=== PATIENT | female | born 1975 | race Caucasian/White ===

== ENCOUNTER 2017-01-18 14:54 | Emergency (ER) | payer OTHER ==
[~2017-01-18 14:54] MED LIST: PRED20 PO; VENTAER INH; ZITHTAB6 PO
[2017-01-18 14:59] VITALS: BP 155/67; PULSE 121; RESP 22; TEMP 98.2; O2SAT 100
--- NOTE | 2017-01-18 15:24 | PD ---
Physical Exam Time Seen by Provider: 15:22 Narrative 41 y/o female here for evaluation of palpitations, anxiety while driving today. Vital signs reviewed. Seen at triage desk. Awaiting bed placement. Data Data Last Documented VS Vital Signs Date Time Temp Pulse Resp B/P Pulse Ox O2 Delivery O2 Flow Rate FiO2 01/18/17 14:59 98.2 121 22 155/67 100 MDM Medical Record Reviewed: Yes Supervised Visit with MARTY: Kb Whitney Jan 18, 2017 15:24
--- NOTE | 2017-01-18 16:29 | PD ---
HPI Chief Complaint: Anxiety Time Seen by Provider: 16:09 Travel History International Travel<30 days: No Contact w/Intl Traveler<30days: No Traveled to known affect area: No History of Present Illness HPI The patient is a 41-year-old female who presents emergency department for palpitations and possible panic attack. The patient states she's been under a lot of stress recently, her fianc several months ago, and the fianc of a good friend recently 10 days ago unexpectedly. The patient is had some palpitations intermittently, was driving earlier today when she felt her heart rate was elevated, possibly near 200. The patient states she developed tunnel head, lightheaded, and was near syncopal. However, she denies any loss consciousness. She also stated she had mild nausea and thought she was going to vomit but denied any chest pain or shortness of breath. The symptoms resolved and then she started driving again, after picking up her daughter, symptoms returned. The patient does have a history of panic attacks/ anxiety years ago when her father , however, underwent therapy and thought she knew how to deal with the stress. She denies any history of pulmonary most , DVT, SVT, atrial flutter, or atrial fibrillation. She denies any recent surgeries, hospitalizations, prolonged travels, or lower extremity edema. She is not currently on control. The patient's primary physician is Dr. María Bell. PFS Past Medical History Diminished Hearing: No ?: Not Tubal Ligation: Yes Past Surgical History Other Surgery: Yes (skin graft right leg, UTERINE ABLATION, BREAST AUGMENTATION ) Social History Alcohol Use: Yes Tobacco Use: Yes (1/2 PPD) Substance Use: No Allergies-Medications (Allergen,Severity, Reaction): Coded Allergies: Morphine (Verified Adverse Reaction, Severe, Anxiety, 05/03/16) Reported Meds & Prescriptions Reported Meds & Active Scripts Active Ativan (Lorazepam) 1 Mg Tab 1 Mg PO Q6H PRN Review of Systems Except as stated in HPI: all other systems reviewed are Neg General / Constitutional: No: Fever Eyes: Positive: Other (tunnel vision) HENT: Positive: Lightheadedness Cardiovascular: Positive: Palpitations, Tachycardia, No: Chest Pain or Discomfort, Diaphoresis Respiratory: No: Shortness of Breath Gastrointestinal: Positive: Nausea, No: Vomiting, Abdominal Pain Musculoskeletal: No: Weakness, Edema Neurologic: Positive: Dizziness Physical Exam Narrative GENERAL: Awake, alert, pleasant 41 year-old female who appears her stated age and is in no acute respiratory distress. SKIN: Focused skin assessment warm/dry. HEAD: Atraumatic. Normocephalic. EYES: Pupils equal and round. No scleral icterus. No injection or drainage. ENT: No nasal bleeding or discharge. Mucous membranes pink and moist. NECK: Trachea midline. No JVD. CARDIOVASCULAR: Regular rate and rhythm. No murmur appreciated. Heart rate in the 90s. RESPIRATORY: No accessory muscle use. Clear to auscultation. Breath sounds equal bilaterally. GASTROINTESTINAL: Abdomen soft, non-tender, nondistended. MUSCULOSKELETAL: No obvious deformities. No clubbing. No cyanosis. No edema. Calves are soft bilaterally. NEUROLOGICAL: Awake and alert. No obvious cranial nerve deficits. Motor grossly within normal limits. Normal speech. PSYCHIATRIC: Appropriate mood and affect; insight and judgment normal. Data Data Last Documented VS Vital Signs Date Time Temp Pulse Resp B/P Pulse Ox O2 Delivery O2 Flow Rate FiO2 01/18/17 18:00 76 20 157/79 97 Room Air 01/18/17 14:59 98.2 Orders Electrocardiogram (01/18/17 ) Complete Blood Count With Diff (01/18/17 16:18) Comprehensive Metabolic Panel (01/18/17 16:18) Magnesium (Mg) (01/18/17 16:18) Ecg Monitoring (01/18/17 16:18) Bilateral Bp Monitoring (01/18/17 16:18) Iv Access Insert/Monitor (01/18/17 16:18) Oximetry (01/18/17 16:18) Oxygen Administration (01/18/17 16:18) Sodium Chloride 0.9% Flush (Ns Flush) (01/18/17 16:30) Sodium Chlorid 0.9% 500 Ml Inj (Ns 500 M (01/18/17 16:30) Lorazepam (Ativan) (01/18/17 16:30) Thyroid Stimulating Hormone (01/18/17 16:18) Free Thyroxine (T4) (01/18/17 16:18) Holter Monitor Recording (01/18/17 ) Acetaminophen (Tylenol) (01/18/17 17:15) Labs Laboratory Tests Test 01/18/17 16:32 White Blood Count 8.5 TH/MM3 Red Blood Count 4.54 MIL/MM3 Hemoglobin 15.0 GM/DL Hematocrit 43.3 % Mean Corpuscular Volume 95.3 FL Mean Corpuscular Hemoglobin 33.0 PG Mean Corpuscular Hemoglobin 34.6 % Concent Red Cell Distribution Width 12.7 % Platelet Count 207 TH/MM3 Mean Platelet Volume 8.3 FL Neutrophils (%) (Auto) 70.4 % Lymphocytes (%) (Auto) 20.7 % Monocytes (%) (Auto) 7.6 % Eosinophils (%) (Auto) 0.9 % Basophils (%) (Auto) 0.4 % Neutrophils # (Auto) 6.0 TH/MM3 Lymphocytes # (Auto) 1.8 TH/MM3 Monocytes # (Auto) 0.6 TH/MM3 Eosinophils # (Auto) 0.1 TH/MM3 Basophils # (Auto) 0.0 TH/MM3 CBC Comment DIFF FINAL Differential Comment Sodium Level 138 MEQ/L Potassium Level 4.4 MEQ/L Chloride Level 106 MEQ/L Carbon Dioxide Level 21.7 MEQ/L Anion Gap 10 MEQ/L Blood Urea Nitrogen 16 MG/DL Creatinine 0.73 MG/DL Estimat Glomerular Filtration 89 ML/MIN Rate Random Glucose 81 MG/DL Calcium Level 9.5 MG/DL Magnesium Level 2.0 MG/DL Total Bilirubin 1.1 MG/DL Aspartate Amino Transf 27 U/L (AST/SGOT) Alanine Aminotransferase 21 U/L (ALT/SGPT) Alkaline Phosphatase 70 U/L Total Protein 7.5 GM/DL Albumin 4.3 GM/DL Free Thyroxine 1.03 NG/DL Thyroid Stimulating Hormone 1.270 uIU/ML [address] [place] [address] Medical Decision Making Medical Screen Exam Complete: Yes Emergency Medical Condition: Yes Medical Record Reviewed: Yes Interpretation(s) EKG reveals normal sinus rhythm with a rate of 75. RSR prime in V1. ME interval 135 ms, no evidence of WPW or Brugada syndrome. Laboratory Tests Test 01/18/17 16:32 White Blood Count 8.5 TH/MM3 Red Blood Count 4.54 MIL/MM3 Hemoglobin 15.0 GM/DL Hematocrit 43.3 % Mean Corpuscular Volume 95.3 FL Mean Corpuscular Hemoglobin 33.0 PG Mean Corpuscular Hemoglobin 34.6 % Concent Red Cell Distribution Width 12.7 % Platelet Count 207 TH/MM3 Mean Platelet Volume 8.3 FL Neutrophils (%) (Auto) 70.4 % Lymphocytes (%) (Auto) 20.7 % Monocytes (%) (Auto) 7.6 % Eosinophils (%) (Auto) 0.9 % Basophils (%) (Auto) 0.4 % Neutrophils # (Auto) 6.0 TH/MM3 Lymphocytes # (Auto) 1.8 TH/MM3 Monocytes # (Auto) 0.6 TH/MM3 Eosinophils # (Auto) 0.1 TH/MM3 Basophils # (Auto) 0.0 TH/MM3 CBC Comment DIFF FINAL Differential Comment Sodium Level 138 MEQ/L Potassium Level 4.4 MEQ/L Chloride Level 106 MEQ/L Carbon Dioxide Level 21.7 MEQ/L Anion Gap 10 MEQ/L Blood Urea Nitrogen 16 MG/DL Creatinine 0.73 MG/DL Estimat Glomerular Filtration 89 ML/MIN Rate Random Glucose 81 MG/DL Calcium Level 9.5 MG/DL Magnesium Level 2.0 MG/DL Total Bilirubin 1.1 MG/DL Aspartate Amino Transf 27 U/L (AST/SGOT) Alanine Aminotransferase 21 U/L (ALT/SGPT) Alkaline Phosphatase 70 U/L Total Protein 7.5 GM/DL Albumin 4.3 GM/DL Free Thyroxine 1.03 NG/DL Thyroid Stimulating Hormone 1.270 uIU/ML 3rd Gen Differential Diagnosis Differential diagnosis includes arrhythmia, SVT, atrial flutter, atrial fibrillation, pulmonary embolism, hyperthyroidism, anxiety, panic attack, electrolyte abnormality. Narrative Course IV was established, labs are drawn and sent, and the patient was placed on cardiac telemetry monitoring and continuous pulse oximetry monitoring. EKG was ordered and interpreted. I do discussion with patient regarding anxiety/panic attack versus arrhythmia. She does have a history of anxiety and panic attacks , is unsure if the recent stress caused her symptoms. After discussion was agreed she would receive Ativan 1 mg orally, however, we would older a Holter monitor as this possibly could be arrhythmia related. Laboratory evaluation is unremarkable. TSH is normal. The patient discharged home, is advised to follow -up with her primary physician for outpatient review of Holter monitor and possible outpatient echocardiogram. Return sooner if symptoms worsen or progress. Diagnosis Primary Impression: Palpitations Patient Instructions: General Instructions Additional Instructions: Holter monitor as directed. Follow-up with a primary physician. Ativan as needed for anxiety/panic attacks. Return if symptoms worsen or progress. Med/Other Pt SpecificInfo: Prescription(s) given Scripts Lorazepam (Ativan)1 Mg Tab1 Mg PO Q6H PRN (ANXIETY AND/OR AGITATION) #12 TAB Ref 0 Prov:Huan Portillo MD 01/18/17 Disposition: 01 DISCHARGE HOME Condition: Stable Huan Portillo MD Jan 18, 2017 16:29
[2017-01-18 16:30] VITALS: BP 154/73; PULSE 80; RESP 20; O2SAT 98
[2017-01-18] MEDS ORDERED: LORazepam 1 MG TAB PO ONE (16:30)
[2017-01-18] MEDS ORDERED: SODIUM CHLORID 0.9% 500 ML INJ 500 ML IV ONE (16:30)
[2017-01-18] MEDS ORDERED: SODIUM CHLORIDE 0.9% FLUSH 10 ML FLUSH IVF PRN (16:30)
[2017-01-18 16:50] LABS: BASOPHIL % 0.4 % (0.0-2.0); EOSINOPHIL # 0.1 TH/MM3 (0-0.4); EOSINOPHIL % 0.9 % (0.0-4.0); HEMATOCRIT 43.3 % (35.0-46.0); HEMO FLAGS DIFF FINAL; LYMPH % 20.7 % (9.0-44.0); LYMPHOCYTE # 1.8 TH/MM3 (1.0-4.8); MEAN CELL VOLUME 95.3 FL (80.0-100.0); MEAN CORPUSCULAR HGB CONC 34.6 % (32.0-36.0); MONO % 7.6 % (0.0-8.0); NEUT % 70.4 % (16.0-70.0); PLATELET COUNT 207 TH/MM3 (150-450); RED BLOOD COUNT 4.54 MIL/MM3 (4.00-5.30); RED CELL DISTRIBUTION WIDTH 12.7 % (11.6-17.2); WHITE BLOOD COUNT 8.5 TH/MM3 (4.0-11.0)
[2017-01-18] MEDS ORDERED: LORA-474 PO (16:55)
[2017-01-18] MEDS ORDERED: ACETAMINOPHEN 325 MG TAB PO ONE (17:15)
[2017-01-18 17:23] LABS: ANION GAP 10 MEQ/L (5-15); AST (GOT) 27 U/L (15-37); BICARBONATE 21.7 MEQ/L (21.0-32.0); BLOOD UREA NITROGEN 16 MG/DL (7-18); CHLORIDE 106 MEQ/L (98-107); GLOMERULAR FILTRATION RATE 89 ML/MIN (>89); POTASSIUM 4.4 MEQ/L (3.5-5.1); SODIUM (NA) 138 MEQ/L (136-145)
[2017-01-18 17:33] LABS: ALKALINE PHOSPHATASE 70 U/L (45-117); ALT (GPT) 21 U/L (10-53); FREE T4 1.03 NG/DL (0.76-1.46); TOTAL BILIRUBIN ADULT 1.1 MG/DL (0.2-1.0)
[2017-01-18 18:00] VITALS: BP 157/79; PULSE 76; RESP 20; O2SAT 97
--- NOTE | 2017-01-18 21:57 | EKG ---
Date Performed: 01/18/2017 Time Performed: 15:44:16 PTAGE: 41 years EKG: Sinus rhythm POSSIBLE RIGHT VENTRICULAR CONDUCTION DELAY BORDERLINE ECG NO PREVIOUS TRACING DOCTOR: Enmanuel Caldwell Interpretating Date/Time 01/18/2017 21:55:59
--- NOTE | 2017-01-22 11:19 | HM ---
Date Performed: 01/18/2017 Time Performed: 17:36:00 HOOKUP DATE: 01/18/17 05:36:00 PM Tue ANALYSIS START TIME: 01/18/2017 5:41:00 PM ANALYSIS END TIME: 01/19/2017 5:45:00 PM PATIENT AGE: 41 PATIENT HEIGHT PATIENT WEIGHT DRUG LIST PATIENT DIAGNOSIS: CARDIAC TEST NARRATIVE: The patient's average heart rate was 85 BPM. Heart rates greater than 120 B PM were noted 8% of the time. Heart rates less than 50 BPM were noted 1% of the time. No pauses exceeding 2.0 seconds were noted. 6 ventricular ectopics, which represented < 1% of the total danielle t count, were noted. The highest ventricular ectopic frequency occurred from 11:00 PM to 12:00 AM We d. During this time 2 VE(s) occurred. Ventricular ectopics were observed as 6 isolated beat(s) only . No couplets or runs were noted. 8 supraventricular ectopics, which represented < 1% of the tot al beat count, were noted. The highest supraventricular ectopic frequency occurred from 11:00 PM to 12:00 AM Wed. During this time 3 SVE(s) occurred. No episodes of ST depression (defined as -1.0 mm or more) were noted in channel 1. No episodes of ST depression (defined as -1.0 mm or more) were noted in channel 2. No episodes of ST depression (defined as -1.0 mm or more) were noted in channel 3. TEST INTERPRETATION: Sinus rhythm and occasional sinus tachycardia Rare isolated PVCs Probable short episode of nonsustained supravent ricular tachycardia at 150 bpm (versus sinus tachycardia). Clinical correlation with activity level recommended. Signed by : David martel
== END 2017-01-18 18:08 | disposition home or self-care (01) ==
LOC: NEPD 14:54
DX: R00.2 Palpitations (principal); R42 Dizziness and giddiness; R11.0 Nausea; I49.3 Ventricular premature depolarization; F17.210 Nicotine dependence, cigarettes, uncomplicated
CPT/HCPCS: 80053; 83735; 84439; 84443; 85025; 93005; 93225; 93226; 99284; J7040

== ENCOUNTER 2017-02-27 08:40 | Emergency (ER) | payer OTHER ==
[~2017-02-27 08:40] MED LIST changes: +LORA-474 PO; -PRED20 PO; -VENTAER INH; -ZITHTAB6 PO
--- NOTE | 2017-02-27 15:19 | RADRPT ---
EXAM DATE/TIME: 02/27/2017 10:07 [facility] COMPARISON: No previous studies available for comparison. INDICATIONS : Fall. Left foot pain. MEDICAL HISTORY : None. SURGICAL HISTORY : None. ENCOUNTER: Initial ACUITY: 1 day PAIN SCORE: 7/10 LOCATION: Left lateral FINDINGS: Three view examination of the left foot demonstrates no soft tissue swelling, dislocation, or fractur e. The tarsal bones appear intact. The interphalangeal and metatarsophalangeal joints are intact. The calcaneus is intact. Bony mineralization is normal. CONCLUSION: No acute fracture. Robert Silver MD on February 27, 2017 at 10:15 Board Certified Radiologist. This report was verified electronically.
--- NOTE | 2017-02-28 08:18 | EP ---
cc: ARLEY ACEVES M.D. Corrected Copy: 02/28/17 CHIEF COMPLAINT: Left foot pain. HISTORY OF PRESENT ILLNESS: The patient presents after a slip last night while cleaning the air conditioner with a water hose. She states her left foot slipped in a puddle and slammed into the wall with pain in the left medial foot. Denies any head trauma. Denies any fall. Denies any loss of consciousness. Reports pain on bearing weight. Last menstrual period one week ago. She complains of nausea and vomiting from pain. PAST MEDICAL HISTORY: None. PAST SURGICAL HISTORY: 1. Uterine ablation x2. 2. Breast augmentation. 3. Tubal ligation. 4. Skin graft right leg. FAMILY HISTORY: Unknown. SOCIAL HISTORY: Smokes one pack per day. Denies alcohol. No illicit drug use. CURRENT MEDICATIONS: None. ALLERGIES: MORPHINE CAUSES ANXIETY. REVIEW OF SYSTEMS: Negative except for the above in the history of present illness. PHYSICAL EXAMINATION: CARDIOVASCULAR: Regular rate and rhythm. RESPIRATORY: Clear to auscultation bilaterally. ABDOMEN: Nontender and nondistended. Positive bowel sounds. EXTREMITIES: Warm to touch. Pulses palpable. No edema noted. Examination of the left foot reveals tenderness over the left distal first metatarsal without bony deformity, ecchymosis, edema or erythema. IMAGING STUDIES: Left foot films reveal no acute fracture. The patient received normal saline and Zofran with resolution of nausea and vomiting. ASSESSMENT: Left foot contusion. PLAN: A postop boot for comfort. Crutches for comfort. Follow up with primary care physician or orthopedics. Return to the emergency department with any onset of new symptoms. Work note if needed. Arley Aceves M.D. EVETTE/BRII /10:36 AM /8:25 AM
== END 2017-02-27 10:50 | disposition home or self-care (01) ==
LOC: PHED 08:52
DX: S90.32XA Contusion of left foot, initial encounter (principal); W01.198A Fall on same level from slipping, tripping and stumbling with subsequent striking against other object, initial encounter
CPT/HCPCS: 73630; 99283